=== PATIENT | female | born 1955 | race Caucasian/White ===

== ENCOUNTER 2018-04-29 12:42 | Inpatient (IN) | payer MEDICARE, OTHER ==
[~2018-04-29] VITALS: Ht 162.6 cm; Wt 67.7 kg
[2018-04-29] MEDS ORDERED: SODIUM CHLORIDE FLUSH 10ML SYR IVF ONE (13:30)
[2018-04-29 14:35] LABS: ALANINE AMINOTRANSFERASE 40 U/L (12-78); ALBUMIN 3.1 g/dL (3.4-5.0); ANION GAP 10 mmol/L (5-15); CALCIUM 9.5 mg/dL (8.5-10.1); CHLORIDE 101 mmol/L (98-107); CREATININE 0.83 mg/dL (0.55-1.02)
[2018-04-29 14:37] LABS: ALKALINE PHOSPHATASE 211 U/L (45-117); BILIRUBIN,TOTAL 0.6 mg/dL (0.2-1.0); TOTAL PROTEIN 8.4 g/dL (6.4-8.2)
--- NOTE | 2018-04-29 16:23 | NUR ---
TO ROOM AT THIS TIME
--- NOTE | 2018-04-29 16:23 | NUR ---
FROM LOBBY TO ROOM
[2018-04-29 16:54] LABS: MEAN CORPUSCULAR HEMOGLOBIN 37.8 pg (27.0-34.8); MEAN CORPUSCULAR HGB CONC 34.3 g/dL (32.4-35.8); MEAN CORPUSCULAR VOLUME 110.3 fL (80-100); PLATELET COUNT 482 x10^3/uL (130-400); RED BLOOD COUNT 4.06 x10^6/uL (3.82-5.3); RED CELL DISTRIBUTION WIDTH 13.9 % (9.6-15.2)
[2018-04-29 17:21] LABS: BASOPHILS # (AUTO) 0.14 x10^3/uL (0-0.1); BASOPHILS % (AUTO) 1 % (0-1); EOSINOPHILS # (AUTO) 0.38 x10^3/uL (0-0.4); EOSINOPHILS % (AUTO) 4 % (1-7); LYMPHOCYTES % (AUTO) 15 % (22-44); MD SCAN; MONOCYTES # (AUTO) 0.45 x10^3/uL (0.2-0.8); MONOCYTES % (AUTO) 4 % (2-9); NEUTROPHILS # (AUTO) 8.18 x10^3/uL (1.8-6.8); NEUTROPHILS % (AUTO) 76 % (42-75)
[2018-04-29] MEDS ORDERED: OXYcodone/APAP 5/325MG TABLET PO ONE (17:30)
--- NOTE | 2018-04-29 17:30 | NUR ---
ADDITIONAL ORDERS FOR LABS RECEIVED. PT REQUESTING SOMETHING FOR PAIN, NOTIFIED VERBAL ORDERS RECEIVED FOR PERC-5. PT TO BE MEDICATED
[2018-04-29] MEDS ORDERED: OXYcodone/APAP 5/325MG TABLET ONE (17:31)
[2018-04-29 17:36] LABS: HCT (SEDRATE) 44.7 % (34.6-47.8)
--- NOTE | 2018-04-29 17:58 | NUR ---
PT RESTING IN ROOM AT THIS TIME. VSS. MEDICATED FOR PAIN PER MAR. AWAITING LAB RESULTS AND RECHECK WITH DISPO AT THIS TIME
[2018-04-29] MEDS ORDERED: VANCOMYCIN PER PHARMACY MC PRN (18:00)
--- NOTE | 2018-04-29 18:03 | NUR ---
HOSPITALIST AT BEDSIDE FOR ADMIT
[2018-04-29] MEDS ORDERED: ENALAPRILAT 1.25 MG/ML, 2ML IVPush PRN (18:30)
[2018-04-29] MEDS ORDERED: ONDANSETRON 2MG/ML, 2ML IVPush PRN (18:30)
[2018-04-29] MEDS ORDERED: VANCOMYCIN 1,300 MG in SODIUM CHLORIDE 0.9% 250 ML IV ONE (18:30)
[2018-04-29] MEDS ORDERED: CEFTRIAXONE PMX 1GM/50ML 50 ML IV SCH (18:30)
[2018-04-29] MEDS ORDERED: hydrALAzine 20 MG/ML, 1ML IVPush PRN (18:30)
[2018-04-29] MEDS ORDERED: CEFTRIAXONE PMX 1GM/50ML 50 ML ONE (18:40)
--- NOTE | 2018-04-29 18:52 | NUR ---
[facility] STARTED BLOOD CULTURES X2 DRAWN PRIOR TO ADMIN.
--- NOTE | 2018-04-29 18:59 | NUR ---
REPORT GIVEN TO DOTTIE PASTRANA
[2018-04-29] MEDS ORDERED: HEPARIN 5,000 UNITS/ML, 1ML ONE (19:22)
[2018-04-29] MEDS: HEPARIN 5,000 UNITS/ML, 1ML SQ SCH (19:39)
--- NOTE | 2018-04-29 20:41 | NUR ---
PT GIVEN SANDWICH, FRUIT AND CHIPS PER REQUEST. ATE 50% OF MEAL.
[2018-04-29] MEDS: OXYcodone/APAP 5/325MG TABLET PO PRN (21:48)
[2018-04-29 23:06] VITALS: BP 150/93
[2018-04-30 01:33] VITALS: BP 133/75
[2018-04-30] MEDS: HEPARIN 5,000 UNITS/ML, 1ML SQ SCH ×3 (04:55→21:42)
[2018-04-30 06:46] VITALS: BP 125/72
[2018-04-30 07:01] LABS: MEAN CORPUSCULAR HEMOGLOBIN 37.6 pg (27.0-34.8); MEAN CORPUSCULAR VOLUME 110.6 fL (80-100); MEAN PLATELET VOLUME 7.8 fL (7.4-10.4); PLATELET COUNT 306 x10^3/uL (130-400); RED BLOOD COUNT 3.42 x10^6/uL (3.82-5.3); RED CELL DISTRIBUTION WIDTH 13.6 % (9.6-15.2)
[2018-04-30 07:07] LABS: ANION GAP 6 mmol/L (5-15); CALCIUM 8.3 mg/dL (8.5-10.1); CHLORIDE 105 mmol/L (98-107)
[2018-04-30 07:08] LABS: CREATININE 0.79 mg/dL (0.55-1.02)
[2018-04-30 07:26] LABS: BASOPHILS # (AUTO) 0.05 x10^3/uL (0-0.1); BASOPHILS % (AUTO) 1 % (0-1); EOSINOPHILS # (AUTO) 0.33 x10^3/uL (0-0.4); EOSINOPHILS % (AUTO) 3 % (1-7); LYMPHOCYTES # (AUTO) 0.73 x10^3/uL (1-3.4); LYMPHOCYTES % (AUTO) 7 % (22-44); MD SCAN; MONOCYTES # (AUTO) 0.52 x10^3/uL (0.2-0.8); MONOCYTES % (AUTO) 5 % (2-9); NEUTROPHILS # (AUTO) 8.68 x10^3/uL (1.8-6.8); NEUTROPHILS % (AUTO) 84 % (42-75)
[2018-04-30] MEDS ORDERED: GADOBUTROL 7.5 MMOL/7.5 ML PFS ONE (09:16)
[2018-04-30] MEDS: OXYcodone/APAP 5/325MG TABLET PO PRN ×2 (10:35→19:39)
[2018-04-30] MEDS ORDERED: PNEUMOC 13-VALENT VACC, 0.5 ML IM-VACC ONE (11:00)
[2018-04-30] MEDS: MEROPENEM 1 GM in SODIUM CHLORIDE 0.9% 100 ML IV SCH ×2 (11:28→19:39)
[2018-04-30 12:30] LABS: HEMOGLOBIN A1C 6.2 % (4.2-6.3)
[2018-04-30] MEDS: DAPTOMYCIN 260 MG in SODIUM CHLORIDE 0.9% 100 ML IV SCH (13:12)
[2018-04-30 13:37] VITALS: BP 114/72
[2018-04-30 19:28] VITALS: BP 148/83
[2018-05-01 02:30] VITALS: BP 150/80
[2018-05-01] MEDS: MEROPENEM 1 GM in SODIUM CHLORIDE 0.9% 100 ML IV SCH ×3 (03:40→19:47)
[2018-05-01] MEDS: OXYcodone/APAP 5/325MG TABLET PO PRN (05:04)
[2018-05-01] MEDS: HEPARIN 5,000 UNITS/ML, 1ML SQ SCH ×2 (05:04→17:06)
[2018-05-01 08:07] LABS: BASOPHILS # (AUTO) 0.03 x10^3/uL (0-0.1); BASOPHILS % (AUTO) 0 % (0-1); EOSINOPHILS # (AUTO) 0.35 x10^3/uL (0-0.4); EOSINOPHILS % (AUTO) 4 % (1-7); LYMPHOCYTES % (AUTO) 11 % (22-44); MD NO; MEAN CORPUSCULAR HEMOGLOBIN 36.8 pg (27.0-34.8); MEAN CORPUSCULAR HGB CONC 33.5 g/dL (32.4-35.8); MEAN PLATELET VOLUME 7.6 fL (7.4-10.4); MONOCYTES # (AUTO) 0.44 x10^3/uL (0.2-0.8); MONOCYTES % (AUTO) 5 % (2-9); NEUTROPHILS # (AUTO) 7.32 x10^3/uL (1.8-6.8); NEUTROPHILS % (AUTO) 80 % (42-75); PLATELET COUNT 292 x10^3/uL (130-400); RED BLOOD COUNT 3.15 x10^6/uL (3.82-5.3)
[2018-05-01 08:19] LABS: ANION GAP 5 mmol/L (5-15); CALCIUM 8.1 mg/dL (8.5-10.1); CHLORIDE 107 mmol/L (98-107); CREATININE 0.69 mg/dL (0.55-1.02)
[2018-05-01 08:24] VITALS: BP 146/82
[2018-05-01] MEDS: metFORMIN 500 MG TABLET PO SCH ×2 (08:29→17:00)
[2018-05-01] MEDS: DAPTOMYCIN 260 MG in SODIUM CHLORIDE 0.9% 100 ML IV SCH (12:29)
[2018-05-01 13:09] VITALS: BP 119/72
[2018-05-01] MEDS: NAPHAZOLINE/PHENIRAMINE OPHTH EACHEYE SCH ×2 (13:49→21:31)
[2018-05-01] MEDS ORDERED: DEXTROSE 50%, 50ML SYRINGE IVPush PRN (14:30)
[2018-05-01] MEDS ORDERED: DEXTROSE 4 GM TAB.CHEW PO PRN (14:30)
[2018-05-01] MEDS ORDERED: GLUCAGON 1 MG IM PRN (14:30)
[2018-05-01] MEDS: INSULIN LISPRO 100 UNITS/ML, PEN SQ-INSULIN SCH ×2 (16:00→19:52)
[2018-05-01 18:43] VITALS: BP 112/76
[2018-05-01] MEDS: SODIUM CHLORIDE FLUSH 10ML SYR IVF SCH (21:31)
[2018-05-02 00:50] VITALS: BP 122/79
[2018-05-02] MEDS: HEPARIN 5,000 UNITS/ML, 1ML SQ SCH ×3 (01:00→17:03)
[2018-05-02] MEDS: MEROPENEM 1 GM in SODIUM CHLORIDE 0.9% 100 ML IV SCH ×3 (03:33→19:47)
[2018-05-02] MEDS: NAPHAZOLINE/PHENIRAMINE OPHTH EACHEYE SCH ×4 (03:33→20:33)
[2018-05-02] MEDS: INSULIN LISPRO 100 UNITS/ML, PEN SQ-INSULIN SCH ×5 (07:00→19:47)
[2018-05-02 07:20] VITALS: BP 147/70
[2018-05-02] MEDS: SODIUM CHLORIDE FLUSH 10ML SYR IVF SCH ×2 (09:00→20:33)
[2018-05-02] MEDS: FLUCONAZOLE 200 MG TABLET PO SCH (09:17)
[2018-05-02] MEDS: metFORMIN 500 MG TABLET PO SCH ×2 (09:18→17:03)
[2018-05-02 14:14] VITALS: BP 152/81
[2018-05-02] MEDS: OXYcodone/APAP 5/325MG TABLET PO PRN (16:21)
[2018-05-02 18:44] VITALS: BP 135/69
[2018-05-03] MEDS: HEPARIN 5,000 UNITS/ML, 1ML SQ SCH ×3 (00:18→17:47)
[2018-05-03 01:10] VITALS: BP 142/73
[2018-05-03] MEDS: MEROPENEM 1 GM in SODIUM CHLORIDE 0.9% 100 ML IV SCH ×3 (03:09→19:47)
[2018-05-03] MEDS: NAPHAZOLINE/PHENIRAMINE OPHTH EACHEYE SCH ×4 (03:09→19:47)
[2018-05-03 05:07] LABS: MEAN CORPUSCULAR HEMOGLOBIN 36.9 pg (27.0-34.8); MEAN CORPUSCULAR HGB CONC 33.4 g/dL (32.4-35.8); MEAN CORPUSCULAR VOLUME 110.4 fL (80-100); MEAN PLATELET VOLUME 7.6 fL (7.4-10.4); PLATELET COUNT 296 x10^3/uL (130-400); RED CELL DISTRIBUTION WIDTH 13.5 % (9.6-15.2)
[2018-05-03 05:10] LABS: ALBUMIN 2.1 g/dL (3.4-5.0); ANION GAP 6 mmol/L (5-15); CALCIUM 8.4 mg/dL (8.5-10.1); CHLORIDE 107 mmol/L (98-107); CREATININE 0.64 mg/dL (0.55-1.02)
[2018-05-03 06:16] LABS: BASOPHILS # (AUTO) 0.05 x10^3/uL (0-0.1); BASOPHILS % (AUTO) 1 % (0-1); EOSINOPHILS % (AUTO) 6 % (1-7); LYMPHOCYTES # (AUTO) 1.24 x10^3/uL (1-3.4); LYMPHOCYTES % (AUTO) 19 % (22-44); MD NO; MONOCYTES # (AUTO) 0.42 x10^3/uL (0.2-0.8); MONOCYTES % (AUTO) 7 % (2-9); NEUTROPHILS # (AUTO) 4.28 x10^3/uL (1.8-6.8); NEUTROPHILS % (AUTO) 67 % (42-75)
[2018-05-03 07:10] VITALS: BP 118/72
[2018-05-03] MEDS: metFORMIN 500 MG TABLET PO SCH ×2 (08:18→17:47)
[2018-05-03] MEDS: INSULIN LISPRO 100 UNITS/ML, PEN SQ-INSULIN SCH ×4 (08:18→19:47)
[2018-05-03] MEDS: FLUCONAZOLE 200 MG TABLET PO SCH (08:19)
[2018-05-03] MEDS: SODIUM CHLORIDE FLUSH 10ML SYR IVF SCH ×2 (08:19→19:48)
[2018-05-03] MEDS: OXYcodone/APAP 5/325MG TABLET PO PRN ×2 (09:04→19:47)
[2018-05-03 17:46] VITALS: BP 138/83
[2018-05-03 18:50] VITALS: BP 138/78
[2018-05-04 00:09] VITALS: BP 120/73
[2018-05-04] MEDS: HEPARIN 5,000 UNITS/ML, 1ML SQ SCH ×3 (01:00→17:35)
[2018-05-04] MEDS: NAPHAZOLINE/PHENIRAMINE OPHTH EACHEYE SCH ×4 (04:07→21:12)
[2018-05-04] MEDS: MEROPENEM 1 GM in SODIUM CHLORIDE 0.9% 100 ML IV SCH ×3 (04:07→19:34)
[2018-05-04] MEDS ORDERED: CATHFLO-ALTEPLASE 2 MG/2 ML CATHFLUSH ONE (05:00)
[2018-05-04 06:52] LABS: BASOPHILS # (AUTO) 0.06 x10^3/uL (0-0.1); BASOPHILS % (AUTO) 1 % (0-1); EOSINOPHILS # (AUTO) 0.37 x10^3/uL (0-0.4); EOSINOPHILS % (AUTO) 6 % (1-7); LYMPHOCYTES # (AUTO) 1.14 x10^3/uL (1-3.4); LYMPHOCYTES % (AUTO) 19 % (22-44); MD NO; MEAN CORPUSCULAR HEMOGLOBIN 37.9 pg (27.0-34.8); MEAN CORPUSCULAR HGB CONC 34.4 g/dL (32.4-35.8); MEAN CORPUSCULAR VOLUME 109.9 fL (80-100); MEAN PLATELET VOLUME 7.6 fL (7.4-10.4); MONOCYTES # (AUTO) 0.35 x10^3/uL (0.2-0.8); MONOCYTES % (AUTO) 6 % (2-9); NEUTROPHILS % (AUTO) 69 % (42-75); PLATELET COUNT 305 x10^3/uL (130-400); RED CELL DISTRIBUTION WIDTH 13.3 % (9.6-15.2)
[2018-05-04] MEDS: INSULIN LISPRO 100 UNITS/ML, PEN SQ-INSULIN SCH ×4 (07:00→19:34)
[2018-05-04 07:03] LABS: ALBUMIN 2.2 g/dL (3.4-5.0); ANION GAP 7 mmol/L (5-15); CALCIUM 8.5 mg/dL (8.5-10.1); CHLORIDE 108 mmol/L (98-107); CREATININE 0.67 mg/dL (0.55-1.02)
[2018-05-04 07:30] VITALS: BP 124/68
[2018-05-04] MEDS: FLUCONAZOLE 200 MG TABLET PO SCH (09:26)
[2018-05-04] MEDS: SODIUM CHLORIDE FLUSH 10ML SYR IVF SCH ×2 (09:27→21:00)
[2018-05-04] MEDS: metFORMIN 500 MG TABLET PO SCH ×2 (09:27→17:35)
[2018-05-04] MEDS: OXYcodone/APAP 5/325MG TABLET PO PRN ×2 (12:40→21:12)
[2018-05-04 14:00] VITALS: BP 129/78
[2018-05-04 18:35] VITALS: BP 157/84
[2018-05-04] MEDS: ACETAMINOPHEN 325 MG TABLET PO PRN (23:55)
[2018-05-05 00:20] VITALS: BP 156/83
[2018-05-05] MEDS: NAPHAZOLINE/PHENIRAMINE OPHTH EACHEYE SCH ×4 (03:31→20:44)
[2018-05-05] MEDS: MEROPENEM 1 GM in SODIUM CHLORIDE 0.9% 100 ML IV SCH ×3 (03:31→20:44)
[2018-05-05 04:20] LABS: BASOPHILS # (AUTO) 0.07 x10^3/uL (0-0.1); BASOPHILS % (AUTO) 1 % (0-1); EOSINOPHILS # (AUTO) 0.44 x10^3/uL (0-0.4); EOSINOPHILS % (AUTO) 6 % (1-7); LYMPHOCYTES # (AUTO) 1.49 x10^3/uL (1-3.4); LYMPHOCYTES % (AUTO) 20 % (22-44); MD NO; MEAN CORPUSCULAR HEMOGLOBIN 36.5 pg (27.0-34.8); MEAN CORPUSCULAR HGB CONC 33.2 g/dL (32.4-35.8); MEAN PLATELET VOLUME 8.2 fL (7.4-10.4); MONOCYTES # (AUTO) 0.33 x10^3/uL (0.2-0.8); MONOCYTES % (AUTO) 5 % (2-9); NEUTROPHILS # (AUTO) 5.01 x10^3/uL (1.8-6.8); NEUTROPHILS % (AUTO) 68 % (42-75); PLATELET COUNT 312 x10^3/uL (130-400); RED BLOOD COUNT 3.38 x10^6/uL (3.82-5.3); RED CELL DISTRIBUTION WIDTH 13.9 % (9.6-15.2)
[2018-05-05 04:21] LABS: HCT (SEDRATE) 37.2 % (34.6-47.8)
[2018-05-05 04:31] LABS: ALANINE AMINOTRANSFERASE 17 U/L (12-78); ALBUMIN 2.1 g/dL (3.4-5.0); ANION GAP 4 mmol/L (5-15); CALCIUM 8.5 mg/dL (8.5-10.1); CHLORIDE 107 mmol/L (98-107); CREATININE 0.56 mg/dL (0.55-1.02)
[2018-05-05 04:34] LABS: ALKALINE PHOSPHATASE 115 U/L (45-117); BILIRUBIN,TOTAL 0.3 mg/dL (0.2-1.0); C-REACTIVE PROTEIN, QUANT 0.81 mg/dL (0.02-0.49); TOTAL PROTEIN 6.1 g/dL (6.4-8.2)
[2018-05-05] MEDS: INSULIN LISPRO 100 UNITS/ML, PEN SQ-INSULIN SCH ×4 (07:00→20:44)
[2018-05-05 07:05] VITALS: BP 113/69
[2018-05-05] MEDS: SODIUM CHLORIDE FLUSH 10ML SYR IVF SCH ×2 (07:47→20:44)
[2018-05-05] MEDS: metFORMIN 500 MG TABLET PO SCH ×2 (07:53→16:28)
[2018-05-05] MEDS: HEPARIN 5,000 UNITS/ML, 1ML SQ SCH ×3 (07:53→16:28)
[2018-05-05] MEDS: FLUCONAZOLE 200 MG TABLET PO SCH (07:53)
[2018-05-05] MEDS: OXYcodone/APAP 5/325MG TABLET PO PRN ×2 (11:57→20:49)
[2018-05-05 12:56] VITALS: BP 131/47
[2018-05-05] MEDS: DAPTOMYCIN 450 MG in SODIUM CHLORIDE 0.9% 100 ML IVPB SCH (12:59)
[2018-05-05 20:51] VITALS: BP 133/78
[2018-05-06] MEDS: HEPARIN 5,000 UNITS/ML, 1ML SQ SCH ×3 (01:00→17:23)
[2018-05-06 02:02] VITALS: BP 128/77
[2018-05-06] MEDS: NAPHAZOLINE/PHENIRAMINE OPHTH EACHEYE SCH ×4 (03:00→19:30)
[2018-05-06] MEDS: MEROPENEM 1 GM in SODIUM CHLORIDE 0.9% 100 ML IV SCH ×3 (04:28→19:30)
[2018-05-06] MEDS: OXYcodone/APAP 5/325MG TABLET PO PRN ×3 (04:37→19:30)
[2018-05-06] MEDS: INSULIN LISPRO 100 UNITS/ML, PEN SQ-INSULIN SCH ×4 (07:00→21:00)
[2018-05-06 07:28] VITALS: BP 109/66
[2018-05-06] MEDS: metFORMIN 500 MG TABLET PO SCH ×2 (07:39→17:22)
[2018-05-06] MEDS: FLUCONAZOLE 200 MG TABLET PO SCH (07:40)
[2018-05-06] MEDS: SODIUM CHLORIDE FLUSH 10ML SYR IVF SCH ×2 (07:40→21:00)
[2018-05-06] MEDS: DAPTOMYCIN 450 MG in SODIUM CHLORIDE 0.9% 100 ML IVPB SCH (12:45)
[2018-05-06 14:23] VITALS: BP 102/67
[2018-05-06 21:08] VITALS: BP 132/85
[2018-05-07] MEDS: HEPARIN 5,000 UNITS/ML, 1ML SQ SCH ×3 (01:00→17:18)
[2018-05-07 02:33] VITALS: BP 117/76
[2018-05-07] MEDS: NAPHAZOLINE/PHENIRAMINE OPHTH EACHEYE SCH ×4 (03:51→19:36)
[2018-05-07] MEDS: MEROPENEM 1 GM in SODIUM CHLORIDE 0.9% 100 ML IV SCH ×3 (03:51→20:06)
[2018-05-07] MEDS: INSULIN LISPRO 100 UNITS/ML, PEN SQ-INSULIN SCH ×4 (07:00→19:39)
[2018-05-07 07:42] VITALS: BP 117/73
[2018-05-07] MEDS: metFORMIN 500 MG TABLET PO SCH ×2 (08:17→17:18)
[2018-05-07] MEDS: FLUCONAZOLE 200 MG TABLET PO SCH (08:17)
[2018-05-07] MEDS: SODIUM CHLORIDE FLUSH 10ML SYR IVF SCH ×2 (09:00→19:36)
[2018-05-07] MEDS: OXYcodone/APAP 5/325MG TABLET PO PRN ×2 (11:46→21:15)
[2018-05-07] MEDS: DAPTOMYCIN 450 MG in SODIUM CHLORIDE 0.9% 100 ML IVPB SCH (12:49)
[2018-05-07 15:42] VITALS: BP 118/76
[2018-05-07 20:38] VITALS: BP 138/80
[2018-05-08] MEDS: HEPARIN 5,000 UNITS/ML, 1ML SQ SCH ×3 (00:31→17:15)
[2018-05-08 01:16] VITALS: BP 130/79
[2018-05-08] MEDS: NAPHAZOLINE/PHENIRAMINE OPHTH EACHEYE SCH ×4 (02:36→19:39)
[2018-05-08] MEDS: MEROPENEM 1 GM in SODIUM CHLORIDE 0.9% 100 ML IV SCH ×3 (03:42→19:39)
[2018-05-08] MEDS: INSULIN LISPRO 100 UNITS/ML, PEN SQ-INSULIN SCH (07:00)
[2018-05-08] MEDS: SODIUM CHLORIDE FLUSH 10ML SYR IVF SCH ×2 (07:39→19:40)
[2018-05-08] MEDS: metFORMIN 500 MG TABLET PO SCH ×2 (07:39→17:14)
[2018-05-08] MEDS: FLUCONAZOLE 200 MG TABLET PO SCH (07:39)
[2018-05-08 07:41] VITALS: BP 119/77
[2018-05-08] MEDS: OXYcodone/APAP 5/325MG TABLET PO PRN ×2 (11:19→21:18)
[2018-05-08 12:50] VITALS: BP 132/84
[2018-05-08] MEDS: DAPTOMYCIN 450 MG in SODIUM CHLORIDE 0.9% 100 ML IVPB SCH (13:22)
[2018-05-08 19:37] VITALS: BP 146/90
[2018-05-08] MEDS: DIPHENHYDRAMINE 25 MG CAPSULE PO PRN (22:23)
[2018-05-09] MEDS: HEPARIN 5,000 UNITS/ML, 1ML SQ SCH ×3 (00:15→16:19)
[2018-05-09 01:00] VITALS: BP 131/83
[2018-05-09] MEDS: NAPHAZOLINE/PHENIRAMINE OPHTH EACHEYE SCH ×4 (03:00→19:46)
[2018-05-09] MEDS: MEROPENEM 1 GM in SODIUM CHLORIDE 0.9% 100 ML IV SCH ×3 (04:14→19:46)
[2018-05-09 07:43] VITALS: BP 134/86
[2018-05-09] MEDS: SODIUM CHLORIDE FLUSH 10ML SYR IVF SCH ×2 (08:46→19:47)
[2018-05-09] MEDS: FLUCONAZOLE 200 MG TABLET PO SCH (08:56)
[2018-05-09] MEDS: metFORMIN 500 MG TABLET PO SCH ×2 (08:56→16:19)
[2018-05-09] MEDS: DIPHENHYDRAMINE 25 MG CAPSULE PO PRN ×2 (09:54→21:37)
[2018-05-09] MEDS: OXYcodone/APAP 5/325MG TABLET PO PRN ×2 (10:55→21:37)
[2018-05-09] MEDS: ACETAMINOPHEN 325 MG TABLET PO PRN (12:00)
[2018-05-09 14:00] VITALS: BP 118/78
[2018-05-09] MEDS: DAPTOMYCIN 450 MG in SODIUM CHLORIDE 0.9% 100 ML IVPB SCH (14:15)
[2018-05-09 19:26] VITALS: BP 121/76
[2018-05-10] MEDS: HEPARIN 5,000 UNITS/ML, 1ML SQ SCH ×3 (00:54→17:28)
[2018-05-10 01:38] VITALS: BP 113/76
[2018-05-10] MEDS: NAPHAZOLINE/PHENIRAMINE OPHTH EACHEYE SCH ×4 (04:00→19:46)
[2018-05-10] MEDS: MEROPENEM 1 GM in SODIUM CHLORIDE 0.9% 100 ML IV SCH ×3 (04:00→19:45)
[2018-05-10] MEDS: SODIUM CHLORIDE FLUSH 10ML SYR IVF SCH ×2 (07:18→19:46)
[2018-05-10 07:44] VITALS: BP 125/80
[2018-05-10] MEDS: metFORMIN 500 MG TABLET PO SCH ×2 (08:56→17:29)
[2018-05-10] MEDS: FLUCONAZOLE 200 MG TABLET PO SCH (08:56)
[2018-05-10] MEDS: OXYcodone/APAP 5/325MG TABLET PO PRN ×2 (13:04→19:44)
[2018-05-10 13:53] VITALS: BP 115/79
[2018-05-10] MEDS: DAPTOMYCIN 450 MG in SODIUM CHLORIDE 0.9% 100 ML IVPB SCH (13:57)
[2018-05-10 19:55] VITALS: BP 136/84
[2018-05-10] MEDS: DIPHENHYDRAMINE 25 MG CAPSULE PO PRN (20:26)
[2018-05-11] MEDS: HEPARIN 5,000 UNITS/ML, 1ML SQ SCH ×3 (03:36→17:46)
[2018-05-11] MEDS: MEROPENEM 1 GM in SODIUM CHLORIDE 0.9% 100 ML IV SCH ×3 (03:36→20:14)
[2018-05-11] MEDS: NAPHAZOLINE/PHENIRAMINE OPHTH EACHEYE SCH ×4 (03:36→20:14)
[2018-05-11 03:42] VITALS: BP 131/83
[2018-05-11 08:09] VITALS: BP 130/77
[2018-05-11] MEDS: FLUCONAZOLE 200 MG TABLET PO SCH (08:11)
[2018-05-11] MEDS: metFORMIN 500 MG TABLET PO SCH ×2 (08:11→17:46)
[2018-05-11] MEDS: SODIUM CHLORIDE FLUSH 10ML SYR IVF SCH ×2 (08:13→20:14)
[2018-05-11] MEDS: OXYcodone/APAP 5/325MG TABLET PO PRN ×3 (10:27→20:14)
[2018-05-11 12:33] VITALS: BP 138/86
[2018-05-11] MEDS: DAPTOMYCIN 450 MG in SODIUM CHLORIDE 0.9% 100 ML IVPB SCH (13:22)
[2018-05-11 19:34] VITALS: BP 150/87
[2018-05-11] MEDS: DIPHENHYDRAMINE 25 MG CAPSULE PO PRN (20:14)
[2018-05-12] MEDS: HEPARIN 5,000 UNITS/ML, 1ML SQ SCH ×3 (04:05→20:23)
[2018-05-12] MEDS: NAPHAZOLINE/PHENIRAMINE OPHTH EACHEYE SCH ×4 (04:05→20:24)
[2018-05-12] MEDS: MEROPENEM 1 GM in SODIUM CHLORIDE 0.9% 100 ML IV SCH ×3 (04:10→20:24)
[2018-05-12] MEDS ORDERED: CATHFLO-ALTEPLASE 2 MG/2 ML CATHFLUSH ONE (04:30)
[2018-05-12 04:51] VITALS: BP 119/73
[2018-05-12 06:07] LABS: BASOPHILS # (AUTO) 0.01 x10^3/uL (0-0.1); BASOPHILS % (AUTO) 0 % (0-1); EOSINOPHILS # (AUTO) 0.58 x10^3/uL (0-0.4); EOSINOPHILS % (AUTO) 9 % (1-7); HCT (SEDRATE) 36.9 % (34.6-47.8); LYMPHOCYTES # (AUTO) 0.97 x10^3/uL (1-3.4); LYMPHOCYTES % (AUTO) 15 % (22-44); MD NO; MEAN CORPUSCULAR HGB CONC 34.3 g/dL (32.4-35.8); MEAN CORPUSCULAR VOLUME 107.8 fL (80-100); MEAN PLATELET VOLUME 8.8 fL (7.4-10.4); MONOCYTES # (AUTO) 0.26 x10^3/uL (0.2-0.8); MONOCYTES % (AUTO) 4 % (2-9); NEUTROPHILS # (AUTO) 4.52 x10^3/uL (1.8-6.8); NEUTROPHILS % (AUTO) 71 % (42-75); PLATELET COUNT 312 x10^3/uL (130-400); RED BLOOD COUNT 3.41 x10^6/uL (3.82-5.3)
[2018-05-12 06:15] LABS: ALBUMIN 2.3 g/dL (3.4-5.0); ANION GAP 3 mmol/L (5-15); CALCIUM 8.7 mg/dL (8.5-10.1); CHLORIDE 109 mmol/L (98-107)
[2018-05-12 06:34] LABS: ALANINE AMINOTRANSFERASE 33 U/L (12-78); ALKALINE PHOSPHATASE 110 U/L (45-117); BILIRUBIN,TOTAL 0.3 mg/dL (0.2-1.0); C-REACTIVE PROTEIN, QUANT 0.28 mg/dL (0.02-0.49); CREATINE KINASE, TOTAL 1404 U/L (26-192); CREATININE 0.58 mg/dL (0.55-1.02); TOTAL PROTEIN 6.4 g/dL (6.4-8.2)
[2018-05-12 07:30] VITALS: BP 135/80
[2018-05-12] MEDS: metFORMIN 500 MG TABLET PO SCH ×2 (07:58→17:36)
[2018-05-12] MEDS: FLUCONAZOLE 200 MG TABLET PO SCH (07:58)
[2018-05-12] MEDS: SODIUM CHLORIDE FLUSH 10ML SYR IVF SCH ×2 (08:01→20:24)
[2018-05-12] MEDS: OXYcodone/APAP 5/325MG TABLET PO PRN ×2 (11:27→20:24)
[2018-05-12] MEDS: DIPHENHYDRAMINE 25 MG CAPSULE PO PRN ×2 (11:32→20:24)
[2018-05-12] MEDS: DAPTOMYCIN 450 MG in SODIUM CHLORIDE 0.9% 100 ML IVPB SCH (13:09)
[2018-05-12 13:12] VITALS: BP 130/81
[2018-05-12 19:54] VITALS: BP 161/90
[2018-05-13 03:55] VITALS: BP 153/78
[2018-05-13] MEDS: MEROPENEM 1 GM in SODIUM CHLORIDE 0.9% 100 ML IV SCH ×3 (04:05→20:33)
[2018-05-13] MEDS: NAPHAZOLINE/PHENIRAMINE OPHTH EACHEYE SCH ×4 (04:06→20:47)
[2018-05-13] MEDS: HEPARIN 5,000 UNITS/ML, 1ML SQ SCH ×3 (04:06→20:46)
[2018-05-13] MEDS: DIPHENHYDRAMINE 25 MG CAPSULE PO PRN ×2 (04:20→20:47)
[2018-05-13] MEDS: OXYcodone/APAP 5/325MG TABLET PO PRN ×2 (04:20→20:47)
[2018-05-13 07:55] VITALS: BP 130/79
[2018-05-13] MEDS: FLUCONAZOLE 200 MG TABLET PO SCH (07:56)
[2018-05-13] MEDS: SODIUM CHLORIDE FLUSH 10ML SYR IVF SCH ×2 (07:57→20:47)
[2018-05-13] MEDS: metFORMIN 500 MG TABLET PO SCH ×2 (07:57→17:34)
[2018-05-13] MEDS: DAPTOMYCIN 450 MG in SODIUM CHLORIDE 0.9% 100 ML IVPB SCH (13:08)
[2018-05-13 15:10] VITALS: BP 127/83
[2018-05-13 19:43] VITALS: BP 147/87
[2018-05-13] MEDS: ACETAMINOPHEN 325 MG TABLET PO PRN (23:52)
[2018-05-14 02:24] VITALS: BP 152/85
[2018-05-14] MEDS: HEPARIN 5,000 UNITS/ML, 1ML SQ SCH (03:56)
[2018-05-14] MEDS: NAPHAZOLINE/PHENIRAMINE OPHTH EACHEYE SCH ×4 (03:56→21:55)
[2018-05-14] MEDS: MEROPENEM 1 GM in SODIUM CHLORIDE 0.9% 100 ML IV SCH ×3 (03:56→17:40)
[2018-05-14 07:59] VITALS: BP 128/82
[2018-05-14] MEDS: metFORMIN 500 MG TABLET PO SCH ×2 (08:21→17:00)
[2018-05-14] MEDS: FLUCONAZOLE 200 MG TABLET PO SCH (08:21)
[2018-05-14] MEDS: SODIUM CHLORIDE FLUSH 10ML SYR IVF SCH ×2 (08:22→21:55)
[2018-05-14 12:35] VITALS: BP 123/78
[2018-05-14] MEDS: DAPTOMYCIN 450 MG in SODIUM CHLORIDE 0.9% 100 ML IVPB SCH (15:19)
[2018-05-14] MEDS ORDERED: SODIUM CHLORIDE 0.9% 1,000 ML IV SCH (17:00)
[2018-05-14] MEDS ORDERED: MIDAZOLAM 1 MG/ML, 2ML ONE (19:03)
[2018-05-14] MEDS ORDERED: FENTANYL PF 250 MCG/5ML ONE (19:04)
[2018-05-14] MEDS ORDERED: PROPOFOL 10 MG/ML, 50ML ONE (19:12)
[2018-05-14] MEDS ORDERED: FENTANYL PF 100 MCG/2ML IV PRN (19:30)
[2018-05-14] MEDS ORDERED: ONDANSETRON ODT 8 MG PO PRN (19:30)
[2018-05-14] MEDS ORDERED: MORPHINE SULFATE 4 MG/ML, 1ML IVPush PRN (19:30)
[2018-05-14] MEDS ORDERED: EPHEDRINE 50 MG/ML, 1ML IVPush PRN (19:30)
[2018-05-14] MEDS ORDERED: OXYcodone 5 MG/5 ML ORAL.SOL UDC PO PRN (19:30)
[2018-05-14] MEDS ORDERED: DIAZEPAM 5 MG/ML, 2ML IVPush PRN (19:30)
[2018-05-14] MEDS ORDERED: LABETALOL 5 MG/ML SYRINGE IV PRN (19:30)
[2018-05-14] MEDS ORDERED: EPHEDRINE 50 MG/ML, 1ML IM PRN (19:30)
[2018-05-14] MEDS ORDERED: ACETAMINOPHEN 325 MG TABLET PO PRN (19:30)
[2018-05-14] MEDS ORDERED: ONDANSETRON 2MG/ML, 2ML IV PRN (19:30)
[2018-05-14] MEDS ORDERED: MEPERIDINE/PF 25MG/0.5ML IVPush PRN (19:30)
[2018-05-14] MEDS ORDERED: DIPHENHYDRAMINE 50 MG/ML, 1ML IVPush PRN (19:30)
[2018-05-14] MEDS ORDERED: OXYcodone 5 MG/5 ML ORAL.SOL UDC ONE (20:08)
[2018-05-14] MEDS ORDERED: ROCURONIUM 10 MG/ML,10ML ONE (20:25)
[2018-05-14] MEDS ORDERED: PROPOFOL 10 MG/ML, 20ML ONE (20:25)
[2018-05-14] MEDS ORDERED: SUCCINYLCHOLINE 20 MG/ML, 10ML ONE (20:25)
[2018-05-14 20:46] VITALS: BP 133/90
[2018-05-14] MEDS: LINEZOLID PMX 600MG/300ML 300 ML IV SCH (21:55)
[2018-05-15] MEDS: MEROPENEM 1 GM in SODIUM CHLORIDE 0.9% 100 ML IV SCH ×3 (00:16→16:30)
[2018-05-15 02:27] VITALS: BP 147/87
[2018-05-15] MEDS: NAPHAZOLINE/PHENIRAMINE OPHTH EACHEYE SCH ×4 (03:00→20:31)
[2018-05-15 06:11] LABS: BASOPHILS # (AUTO) 0.03 x10^3/uL (0-0.1); BASOPHILS % (AUTO) 1 % (0-1); EOSINOPHILS # (AUTO) 0.61 x10^3/uL (0-0.4); EOSINOPHILS % (AUTO) 12 % (1-7); LYMPHOCYTES # (AUTO) 0.86 x10^3/uL (1-3.4); LYMPHOCYTES % (AUTO) 16 % (22-44); MD NO; MEAN CORPUSCULAR HEMOGLOBIN 36.8 pg (27.0-34.8); MEAN CORPUSCULAR HGB CONC 34.3 g/dL (32.4-35.8); MEAN CORPUSCULAR VOLUME 107.3 fL (80-100); MEAN PLATELET VOLUME 8.3 fL (7.4-10.4); MONOCYTES # (AUTO) 0.34 x10^3/uL (0.2-0.8); MONOCYTES % (AUTO) 6 % (2-9); NEUTROPHILS # (AUTO) 3.48 x10^3/uL (1.8-6.8); NEUTROPHILS % (AUTO) 65 % (42-75); PLATELET COUNT 305 x10^3/uL (130-400); RED BLOOD COUNT 3.38 x10^6/uL (3.82-5.3); RED CELL DISTRIBUTION WIDTH 13.2 % (9.6-15.2)
[2018-05-15 06:29] LABS: ALANINE AMINOTRANSFERASE 45 U/L (12-78); ALBUMIN 2.4 g/dL (3.4-5.0); ANION GAP 4 mmol/L (5-15); CALCIUM 8.8 mg/dL (8.5-10.1); CHLORIDE 110 mmol/L (98-107); CREATININE 0.62 mg/dL (0.55-1.02)
[2018-05-15 06:32] LABS: ALKALINE PHOSPHATASE 118 U/L (45-117); BILIRUBIN,TOTAL 0.4 mg/dL (0.2-1.0); TOTAL PROTEIN 6.2 g/dL (6.4-8.2)
[2018-05-15 08:23] VITALS: BP 137/82
[2018-05-15] MEDS: FLUCONAZOLE 200 MG TABLET PO SCH (08:37)
[2018-05-15] MEDS: OXYcodone/APAP 5/325MG TABLET PO PRN ×3 (08:37→20:31)
[2018-05-15] MEDS: DIPHENHYDRAMINE 25 MG CAPSULE PO PRN ×2 (08:37→20:31)
[2018-05-15] MEDS: metFORMIN 500 MG TABLET PO SCH ×2 (08:37→16:32)
[2018-05-15] MEDS: SODIUM CHLORIDE FLUSH 10ML SYR IVF SCH ×2 (08:38→20:42)
[2018-05-15] MEDS: LINEZOLID PMX 600MG/300ML 300 ML IV SCH ×2 (10:41→22:18)
[2018-05-15] MEDS: HEPARIN 5,000 UNITS/ML, 1ML SQ SCH ×2 (13:01→20:31)
[2018-05-15 13:07] VITALS: BP 135/84
[2018-05-15 19:47] VITALS: BP 131/77
[2018-05-16] MEDS: MEROPENEM 1 GM in SODIUM CHLORIDE 0.9% 100 ML IV SCH ×3 (00:40→15:50)
[2018-05-16 00:42] VITALS: BP 129/81
[2018-05-16] MEDS: HEPARIN 5,000 UNITS/ML, 1ML SQ SCH ×3 (04:25→21:54)
[2018-05-16] MEDS: DIPHENHYDRAMINE 25 MG CAPSULE PO PRN ×2 (04:25→21:54)
[2018-05-16] MEDS: OXYcodone/APAP 5/325MG TABLET PO PRN ×3 (04:25→21:54)
[2018-05-16] MEDS: NAPHAZOLINE/PHENIRAMINE OPHTH EACHEYE SCH ×4 (04:26→21:55)
[2018-05-16 07:03] VITALS: BP 123/75
[2018-05-16 07:04] LABS: CALCIUM 8.8 mg/dL (8.5-10.1); CHLORIDE 111 mmol/L (98-107)
[2018-05-16 07:11] LABS: ANION GAP 5 mmol/L (5-15); CREATINE KINASE, TOTAL 661 U/L (26-192); CREATININE 0.61 mg/dL (0.55-1.02)
[2018-05-16] MEDS: FLUCONAZOLE 200 MG TABLET PO SCH (08:33)
[2018-05-16] MEDS: metFORMIN 500 MG TABLET PO SCH ×2 (08:33→15:49)
[2018-05-16] MEDS: SODIUM CHLORIDE FLUSH 10ML SYR IVF SCH ×2 (08:34→21:55)
[2018-05-16] MEDS: LINEZOLID PMX 600MG/300ML 300 ML IV SCH ×2 (11:02→21:55)
[2018-05-16 13:12] VITALS: BP 147/86
[2018-05-16 18:39] VITALS: BP 141/68
[2018-05-16] MEDS: ONDANSETRON 4 MG TABLET PO PRN (22:39)
[2018-05-17] MEDS: MEROPENEM 1 GM in SODIUM CHLORIDE 0.9% 100 ML IV SCH ×3 (00:14→17:12)
[2018-05-17 00:59] VITALS: BP 128/86
[2018-05-17] MEDS: NAPHAZOLINE/PHENIRAMINE OPHTH EACHEYE SCH ×4 (04:31→22:06)
[2018-05-17] MEDS: OXYcodone/APAP 5/325MG TABLET PO PRN ×2 (04:31→20:21)
[2018-05-17] MEDS: HEPARIN 5,000 UNITS/ML, 1ML SQ SCH ×2 (04:31→17:12)
[2018-05-17 07:58] VITALS: BP 105/67
[2018-05-17] MEDS: SODIUM CHLORIDE FLUSH 10ML SYR IVF SCH ×2 (09:00→22:06)
[2018-05-17] MEDS: FLUCONAZOLE 200 MG TABLET PO SCH (10:04)
[2018-05-17] MEDS: metFORMIN 500 MG TABLET PO SCH ×2 (10:04→17:11)
[2018-05-17] MEDS: LINEZOLID PMX 600MG/300ML 300 ML IV SCH ×2 (11:23→22:07)
[2018-05-17 13:46] VITALS: BP 150/86
[2018-05-17 21:05] VITALS: BP 159/88
[2018-05-17] MEDS: DIPHENHYDRAMINE 25 MG CAPSULE PO PRN (22:07)
[2018-05-18] MEDS: HEPARIN 5,000 UNITS/ML, 1ML SQ SCH ×2 (00:57→09:34)
[2018-05-18] MEDS: MEROPENEM 1 GM in SODIUM CHLORIDE 0.9% 100 ML IV SCH ×3 (00:57→18:26)
[2018-05-18] MEDS: NAPHAZOLINE/PHENIRAMINE OPHTH EACHEYE SCH ×4 (03:00→21:13)
[2018-05-18 03:22] VITALS: BP 128/84
[2018-05-18 07:43] VITALS: BP 118/75
[2018-05-18] MEDS: SODIUM CHLORIDE FLUSH 10ML SYR IVF SCH ×2 (09:00→21:13)
[2018-05-18] MEDS: FLUCONAZOLE 200 MG TABLET PO SCH (09:34)
[2018-05-18] MEDS: metFORMIN 500 MG TABLET PO SCH ×2 (09:34→18:26)
[2018-05-18] MEDS: LINEZOLID PMX 600MG/300ML 300 ML IV SCH ×2 (10:33→22:11)
[2018-05-18 12:29] VITALS: BP 140/86
[2018-05-18] MEDS: ENOXAPARIN 40 MG/0.4 ML SQ SCH (18:26)
[2018-05-18 20:37] VITALS: BP 149/90
[2018-05-18] MEDS: OXYcodone/APAP 5/325MG TABLET PO PRN (21:13)
[2018-05-18] MEDS: DIPHENHYDRAMINE 25 MG CAPSULE PO PRN (21:14)
[2018-05-19] MEDS: MEROPENEM 1 GM in SODIUM CHLORIDE 0.9% 100 ML IV SCH ×3 (00:44→16:45)
[2018-05-19 00:48] VITALS: BP 132/80
[2018-05-19] MEDS: NAPHAZOLINE/PHENIRAMINE OPHTH EACHEYE SCH ×4 (02:43→20:38)
[2018-05-19 06:08] LABS: MEAN CORPUSCULAR HEMOGLOBIN 36.3 pg (27.0-34.8); MEAN CORPUSCULAR HGB CONC 34.2 g/dL (32.4-35.8); MEAN CORPUSCULAR VOLUME 106.1 fL (80-100); MEAN PLATELET VOLUME 8.8 fL (7.4-10.4); PLATELET COUNT 328 x10^3/uL (130-400); RED BLOOD COUNT 3.45 x10^6/uL (3.82-5.3)
[2018-05-19 06:13] LABS: CHLORIDE 108 mmol/L (98-107)
[2018-05-19 06:21] LABS: ALANINE AMINOTRANSFERASE 38 U/L (12-78); ALBUMIN 2.5 g/dL (3.4-5.0); ALKALINE PHOSPHATASE 126 U/L (45-117); ANION GAP 7 mmol/L (5-15); BILIRUBIN,TOTAL 0.5 mg/dL (0.2-1.0); C-REACTIVE PROTEIN, QUANT 0.17 mg/dL (0.02-0.49); CALCIUM 8.7 mg/dL (8.5-10.1); CREATINE KINASE, TOTAL 127 U/L (26-192); CREATININE 0.65 mg/dL (0.55-1.02); HCT (SEDRATE) 36.5 % (34.6-47.8); TOTAL PROTEIN 6.3 g/dL (6.4-8.2)
[2018-05-19 07:04] LABS: BASOPHILS # (AUTO) 0.06 x10^3/uL (0-0.1); BASOPHILS % (AUTO) 2 % (0-1); EOSINOPHILS # (AUTO) 0.58 x10^3/uL (0-0.4); EOSINOPHILS % (AUTO) 14 % (1-7); LYMPHOCYTES % (AUTO) 25 % (22-44); MD SCAN; MONOCYTES # (AUTO) 0.25 x10^3/uL (0.2-0.8); MONOCYTES % (AUTO) 6 % (2-9); NEUTROPHILS # (AUTO) 2.21 x10^3/uL (1.8-6.8); NEUTROPHILS % (AUTO) 54 % (42-75)
[2018-05-19 08:13] VITALS: BP 116/76
[2018-05-19] MEDS: LINEZOLID PMX 600MG/300ML 300 ML IV SCH ×2 (09:48→21:46)
[2018-05-19] MEDS: FLUCONAZOLE 200 MG TABLET PO SCH (09:48)
[2018-05-19] MEDS: metFORMIN 500 MG TABLET PO SCH ×2 (09:48→16:45)
[2018-05-19] MEDS: SODIUM CHLORIDE FLUSH 10ML SYR IVF SCH ×2 (09:49→20:31)
[2018-05-19 13:59] VITALS: BP 121/81
[2018-05-19] MEDS: ENOXAPARIN 40 MG/0.4 ML SQ SCH (15:56)
[2018-05-19 19:14] VITALS: BP 147/87
[2018-05-19] MEDS: DIPHENHYDRAMINE 25 MG CAPSULE PO PRN (20:37)
[2018-05-19] MEDS: OXYcodone/APAP 5/325MG TABLET PO PRN (20:37)
[2018-05-19] MEDS: ONDANSETRON 4 MG TABLET PO PRN (21:46)
[2018-05-20 00:25] VITALS: BP 131/80
[2018-05-20] MEDS: MEROPENEM 1 GM in SODIUM CHLORIDE 0.9% 100 ML IV SCH ×3 (01:22→17:05)
[2018-05-20] MEDS: NAPHAZOLINE/PHENIRAMINE OPHTH EACHEYE SCH ×5 (03:00→23:38)
[2018-05-20 08:05] VITALS: BP 117/78
[2018-05-20] MEDS: SODIUM CHLORIDE FLUSH 10ML SYR IVF SCH ×2 (08:36→20:15)
[2018-05-20] MEDS: FLUCONAZOLE 200 MG TABLET PO SCH (08:36)
[2018-05-20] MEDS: metFORMIN 500 MG TABLET PO SCH ×2 (08:36→17:04)
[2018-05-20] MEDS: LINEZOLID PMX 600MG/300ML 300 ML IV SCH ×2 (11:38→23:34)
[2018-05-20 14:56] VITALS: BP 126/78
[2018-05-20] MEDS: ENOXAPARIN 40 MG/0.4 ML SQ SCH (17:04)
[2018-05-20] MEDS: ONDANSETRON 4 MG TABLET PO PRN (20:13)
[2018-05-20 20:23] VITALS: BP 158/92
[2018-05-20] MEDS: OXYcodone/APAP 5/325MG TABLET PO PRN (21:24)
[2018-05-20] MEDS: DIPHENHYDRAMINE 25 MG CAPSULE PO PRN (23:34)
[2018-05-21] MEDS: MEROPENEM 1 GM in SODIUM CHLORIDE 0.9% 100 ML IV SCH ×3 (01:46→17:16)
[2018-05-21 01:58] VITALS: BP 149/87
[2018-05-21 08:07] VITALS: BP 128/72
[2018-05-21] MEDS: SODIUM CHLORIDE FLUSH 10ML SYR IVF SCH ×2 (09:00→20:36)
[2018-05-21] MEDS: FLUCONAZOLE 200 MG TABLET PO SCH (09:23)
[2018-05-21] MEDS: metFORMIN 500 MG TABLET PO SCH ×2 (09:23→17:16)
[2018-05-21] MEDS: NAPHAZOLINE/PHENIRAMINE OPHTH EACHEYE SCH ×3 (09:24→20:36)
[2018-05-21] MEDS: LINEZOLID PMX 600MG/300ML 300 ML IV SCH ×2 (10:50→22:52)
[2018-05-21 14:46] VITALS: BP 145/89
[2018-05-21] MEDS: ENOXAPARIN 40 MG/0.4 ML SQ SCH (17:16)
[2018-05-21] MEDS: ONDANSETRON 4 MG TABLET PO PRN (20:35)
[2018-05-21] MEDS: DIPHENHYDRAMINE 25 MG CAPSULE PO PRN (20:35)
[2018-05-21] MEDS: OXYcodone/APAP 5/325MG TABLET PO PRN (20:35)
[2018-05-21 20:36] VITALS: BP 148/92
[2018-05-22] MEDS: MEROPENEM 1 GM in SODIUM CHLORIDE 0.9% 100 ML IV SCH ×2 (01:09→11:15)
[2018-05-22 01:20] VITALS: BP 128/61
[2018-05-22] MEDS: NAPHAZOLINE/PHENIRAMINE OPHTH EACHEYE SCH ×4 (03:00→19:21)
[2018-05-22 07:35] VITALS: BP 133/83
[2018-05-22] MEDS: SODIUM CHLORIDE FLUSH 10ML SYR IVF SCH ×2 (09:00→19:21)
[2018-05-22] MEDS: FLUCONAZOLE 200 MG TABLET PO SCH (11:15)
[2018-05-22] MEDS: metFORMIN 500 MG TABLET PO SCH ×2 (11:15→17:48)
[2018-05-22] MEDS: LINEZOLID PMX 600MG/300ML 300 ML IV SCH (11:30)
[2018-05-22 14:15] VITALS: BP 131/87
[2018-05-22] MEDS: ENOXAPARIN 40 MG/0.4 ML SQ SCH (17:48)
[2018-05-22] MEDS: OXYcodone/APAP 5/325MG TABLET PO PRN (19:19)
[2018-05-22] MEDS: ONDANSETRON 4 MG TABLET PO PRN (19:19)
[2018-05-22] MEDS: LINEZOLID 600 MG TABLET PO SCH (19:20)
[2018-05-22] MEDS: DIPHENHYDRAMINE 25 MG CAPSULE PO PRN (19:20)
[2018-05-22] MEDS: CIPROFLOXACIN 500 MG TABLET PO SCH (19:20)
[2018-05-22 20:26] VITALS: BP 147/91
[2018-05-23 01:25] VITALS: BP 151/98
[2018-05-23] MEDS: NAPHAZOLINE/PHENIRAMINE OPHTH EACHEYE SCH ×3 (03:00→15:00)
[2018-05-23 07:25] VITALS: BP 116/81
[2018-05-23] MEDS: CIPROFLOXACIN 500 MG TABLET PO SCH (09:00)
[2018-05-23] MEDS: SODIUM CHLORIDE FLUSH 10ML SYR IVF SCH (09:00)
[2018-05-23] MEDS: FLUCONAZOLE 200 MG TABLET PO SCH (09:32)
[2018-05-23] MEDS: LINEZOLID 600 MG TABLET PO SCH (09:33)
[2018-05-23] MEDS: metFORMIN 500 MG TABLET PO SCH (09:33)
[2018-05-23] MEDS ORDERED: ACET325T14 PO (14:18)
[2018-05-23] MEDS ORDERED: METF500T PO (14:18)
[2018-05-23] MEDS ORDERED: FLUC200T PO (14:18)
[2018-05-23] MEDS ORDERED: LINE600T33 PO (14:18)
[2018-05-23] MEDS ORDERED: CIPR500T87 PO (14:18)
[2018-05-23] MEDS: ENOXAPARIN 40 MG/0.4 ML SQ SCH (16:00)
== END 2018-05-23 16:30 | disposition home or self-care (01) | DRG 580 ==
LOC: ED 17:58 → EDIP 18:03 → ED 18:58 → 3NE 21:13
PROVIDERS: ADMIT Hospitalist; ATTEND Hospitalist
PROC: 0JBP0ZX Excision of Left Lower Leg Subcutaneous Tissue and Fascia, Open Approach, Diagnostic (ICD-10-PCS; 2018-05-14)
PROC: 0JDP0ZZ Extraction of Left Lower Leg Subcutaneous Tissue and Fascia, Open Approach (ICD-10-PCS; principal; 2018-05-14 19:00)
DX: L03.116 Cellulitis of left lower limb (principal); M62.82 Rhabdomyolysis; L97.221 Non-pressure chronic ulcer of left calf limited to breakdown of skin; E11.622 Type 2 diabetes mellitus with other skin ulcer; D53.9 Nutritional anemia, unspecified; F03.90 Unspecified dementia, unspecified severity, without behavioral disturbance, psychotic disturbance, mood disturbance, and anxiety; I10 Essential (primary) hypertension; Z96.631 Presence of right artificial wrist joint; B96.89 Other specified bacterial agents as the cause of diseases classified elsewhere; Z16.24 Resistance to multiple antibiotics; Z86.718 Personal history of other venous thrombosis and embolism; Z91.19 Patient's noncompliance with other medical treatment and regimen; Z86.14 Personal history of Methicillin resistant Staphylococcus aureus infection; Z90.49 Acquired absence of other specified parts of digestive tract; Z90.89 Acquired absence of other organs
CPT/HCPCS: 36415; 80048; 80053; 82040; 82550; 82607; 82962; 83036; 83605; 83735; 84100; 84145; 84443; 85025; 85651; 86140; 87040; 87070; 87075; 87077; 87106; 87176; 87186; 87205; 88305; 93922; 96365; 96366; 99285; A9585; C1729; G0378; J0696; J0878; J1644; J1650; J2020; J2185; J2250; J2704; J2997; J3010; J3370; Q0162; J0330; J1815; J7030; J7050; Q0163

== ENCOUNTER 2018-05-27 14:35 | Inpatient (IN) | payer OTHER ==
[~2018-05-27] VITALS: Ht 165.1 cm; Wt 62.7 kg
[~2018-05-27 14:35] MED LIST: ACET325T14 PO; CIPR500T87 PO; FLUC200T PO; LINE600T33 PO; METF500T PO
[2018-05-27] MEDS ORDERED: SODIUM CHLORIDE FLUSH 10ML SYR IVF ONE ×2 (15:00→16:00)
--- NOTE | 2018-05-27 15:03 | NUR ---
THIS PT ARRIVES TO ED S/P 1 MONTH ADMISSION FOR WOUND OF THE LEFT LEG CALF. PT COMES INTO ED WITH PAIN AND PER PT SHE BELEIVES WOUND IS GETTING WORSE AT THIS TIME. PT REPORTS FOLLWOING UP WIHT WOUND CARE HOWEVER WOUND DRESSING IS DRY AND STUCK ONTO WOUND AT THIS TIME. INFORMED OF THIS. PT PLACED IN BED AND FALL TEACHING PROVIDED. AWAITING FURTHER ORDERS. PT HAS PEDAL PULSE TO LEFT LEG.
[2018-05-27 15:22] LABS: BASOPHILS # (AUTO) 0.06 x10^3/uL (0-0.1); BASOPHILS % (AUTO) 1 % (0-1); EOSINOPHILS # (AUTO) 0.06 x10^3/uL (0-0.4); EOSINOPHILS % (AUTO) 1 % (1-7); LYMPHOCYTES # (AUTO) 1.39 x10^3/uL (1-3.4); LYMPHOCYTES % (AUTO) 11 % (22-44); MD NO; MEAN CORPUSCULAR HEMOGLOBIN 36.2 pg (27.0-34.8); MEAN CORPUSCULAR HGB CONC 35.1 g/dL (32.4-35.8); MEAN CORPUSCULAR VOLUME 103.1 fL (80-100); MEAN PLATELET VOLUME 8.5 fL (7.4-10.4); MONOCYTES # (AUTO) 0.53 x10^3/uL (0.2-0.8); MONOCYTES % (AUTO) 4 % (2-9); NEUTROPHILS # (AUTO) 10.11 x10^3/uL (1.8-6.8); NEUTROPHILS % (AUTO) 83 % (42-75); PLATELET COUNT 369 x10^3/uL (130-400); RED BLOOD COUNT 3.87 x10^6/uL (3.82-5.3); RED CELL DISTRIBUTION WIDTH 12.9 % (9.6-15.2)
[2018-05-27 15:30] LABS: ALANINE AMINOTRANSFERASE 30 U/L (12-78); ALBUMIN 3.5 g/dL (3.4-5.0); ANION GAP 14 mmol/L (5-15); CALCIUM 12.6 mg/dL (8.5-10.1); CHLORIDE 90 mmol/L (98-107); CREATININE 1.21 mg/dL (0.55-1.02)
[2018-05-27 15:32] LABS: ALKALINE PHOSPHATASE 158 U/L (45-117); BILIRUBIN,TOTAL 1.5 mg/dL (0.2-1.0)
--- NOTE | 2018-05-27 15:43 | NUR ---
PT TO US AT THIS TIME UNABLE TO START IV.
[2018-05-27] MEDS ORDERED: SODIUM CHLORIDE 0.9% 1,000ML IVBOLUS ONE (16:00)
[2018-05-27] MEDS ORDERED: ENOXAPARIN 60 MG/0.6 ML SQ ONE (16:30)
[2018-05-27] MEDS ORDERED: ONDANSETRON 2MG/ML, 2ML IVPush ONE (16:30)
[2018-05-27] MEDS ORDERED: ENOXAPARIN 60 MG/0.6 ML ONE (17:07)
--- NOTE | 2018-05-27 17:12 | NUR ---
WARM BLANKET PROVIDED TO PT.
[2018-05-27] MEDS ORDERED: DOCUSATE 100 MG CAPSULE PO PRN (18:00)
[2018-05-27] MEDS ORDERED: hydrALAzine 20 MG/ML, 1ML IVPush PRN (18:00)
[2018-05-27] MEDS ORDERED: POTASSIUM CHLORIDE 20 MEQ TAB.ER.PRT PO ONE (18:00)
[2018-05-27] MEDS ORDERED: ACETAMINOPHEN 325 MG TABLET PO PRN ×2 (18:00)
[2018-05-27] MEDS ORDERED: GUAIFENESIN/COD200MG-20MG/10ML LIQUID PO PRN (18:00)
[2018-05-27] MEDS ORDERED: CYCLOBENZAPRINE 10 MG TABLET PO PRN (18:00)
[2018-05-27] MEDS ORDERED: OXYcodone/APAP 5/325MG TABLET PO ONE (19:00)
[2018-05-27] MEDS ORDERED: HEPARIN 5,000 UNITS/ML, 1ML IV ONE (19:30)
[2018-05-27] MEDS: ONDANSETRON 2MG/ML, 2ML IVPush PRN (20:24)
[2018-05-27 21:09] VITALS: BP 142/62
[2018-05-27] MEDS: OXYcodone IR 5MG TABLET PO PRN (21:09)
[2018-05-27] MEDS: LINEZOLID PMX 600MG/300ML 300 ML IV SCH (21:34)
[2018-05-27] MEDS: POTASSIUM CHLORIDE 20 MEQ in LACTATED RINGERS 1,000 ML IV SCH (21:34)
[2018-05-28] MEDS: ALUMINUM/MAG/SIMETHICONE 30 ML UDC PO PRN ×2 (00:31→19:33)
[2018-05-28] MEDS: FLUCONAZOLE 400 MG/200 ML 200 ML IV SCH ×2 (00:31→21:07)
[2018-05-28 01:00] VITALS: BP 102/56
[2018-05-28] MEDS: HEPARIN 25,000 UNITS/500ML PMX 500 ML IV PRN (01:39)
[2018-05-28] MEDS: ONDANSETRON 2MG/ML, 2ML IVPush PRN ×2 (02:19→08:30)
[2018-05-28] MEDS: OXYcodone IR 5MG TABLET PO PRN ×2 (02:26→18:19)
[2018-05-28] MEDS ORDERED: LORazepam 2 MG/ML, 1ML IVPush PRN (03:30)
[2018-05-28 05:31] LABS: CHLORIDE 96 mmol/L (98-107)
[2018-05-28 05:37] LABS: ANION GAP 11 mmol/L (5-15); CALCIUM 9.8 mg/dL (8.5-10.1); CREATININE 1.12 mg/dL (0.55-1.02)
[2018-05-28 05:56] LABS: BASOPHILS # (AUTO) 0.09 x10^3/uL (0-0.1); BASOPHILS % (AUTO) 1 % (0-1); EOSINOPHILS # (AUTO) 0.13 x10^3/uL (0-0.4); EOSINOPHILS % (AUTO) 2 % (1-7); LYMPHOCYTES # (AUTO) 1.41 x10^3/uL (1-3.4); LYMPHOCYTES % (AUTO) 16 % (22-44); MD NO; MEAN CORPUSCULAR HEMOGLOBIN 36.5 pg (27.0-34.8); MEAN CORPUSCULAR HGB CONC 34.7 g/dL (32.4-35.8); MEAN PLATELET VOLUME 8.9 fL (7.4-10.4); MONOCYTES # (AUTO) 0.51 x10^3/uL (0.2-0.8); MONOCYTES % (AUTO) 6 % (2-9); NEUTROPHILS # (AUTO) 6.57 x10^3/uL (1.8-6.8); NEUTROPHILS % (AUTO) 76 % (42-75); PLATELET COUNT 244 x10^3/uL (130-400); RED BLOOD COUNT 3.01 x10^6/uL (3.82-5.3); RED CELL DISTRIBUTION WIDTH 12.9 % (9.6-15.2)
[2018-05-28] MEDS: LINEZOLID PMX 600MG/300ML 300 ML IV SCH ×2 (05:57→18:19)
[2018-05-28] MEDS ORDERED: MAGNESIUM SULFATE PMX 2GM/50ML 50 ML IV ONE (06:00)
[2018-05-28 07:35] VITALS: BP 114/72
[2018-05-28] MEDS: POTASSIUM CHLORIDE 20 MEQ TAB.ER.PRT PO SCH ×2 (08:28→10:08)
[2018-05-28] MEDS: POTASSIUM CHLORIDE 20 MEQ in LACTATED RINGERS 1,000 ML IV SCH ×2 (10:08→21:08)
[2018-05-28 12:24] VITALS: BP 157/93
[2018-05-28] MEDS ORDERED: CIPROFLOXACIN/PMX 400MG/200ML 200 ML IV SCH (12:30)
[2018-05-28 14:20] LABS: ANION GAP 9 mmol/L (5-15); CALCIUM 9.2 mg/dL (8.5-10.1); CHLORIDE 96 mmol/L (98-107)
[2018-05-28] MEDS: HEPARIN 5,000 UNITS/ML, 1ML IV PRN ×2 (15:02→21:26)
[2018-05-28 18:58] LABS: CULTURE INDICATED? NO; MICROSCOPIC AUTO
[2018-05-28 19:48] VITALS: BP 139/78
[2018-05-29 01:24] VITALS: BP 123/76
[2018-05-29] MEDS: HEPARIN 25,000 UNITS/500ML PMX 500 ML IV PRN (05:39)
[2018-05-29] MEDS: LINEZOLID PMX 600MG/300ML 300 ML IV SCH ×2 (06:06→18:14)
[2018-05-29 07:14] VITALS: BP 128/72
[2018-05-29 07:23] LABS: ANION GAP 6 mmol/L (5-15); CALCIUM 8.6 mg/dL (8.5-10.1); CHLORIDE 101 mmol/L (98-107); CREATININE 0.79 mg/dL (0.55-1.02)
[2018-05-29] MEDS: HEPARIN 5,000 UNITS/ML, 1ML IV PRN (10:41)
[2018-05-29] MEDS: SODIUM CHLORIDE 1 GM TABLET PO SCH ×3 (10:43→21:20)
[2018-05-29] MEDS: ALUMINUM/MAG/SIMETHICONE 30 ML UDC PO PRN ×2 (10:43→16:16)
[2018-05-29] MEDS: ONDANSETRON 2MG/ML, 2ML IVPush PRN (13:05)
[2018-05-29 13:15] VITALS: BP 132/69
[2018-05-29 13:16] VITALS: BP 129/64
[2018-05-29] MEDS: CIPROFLOXACIN/PMX 400MG/200ML 200 ML IV SCH (13:36)
[2018-05-29] MEDS ORDERED: HEPARIN 5,000 UNITS/ML, 1ML IV PRN (14:30)
[2018-05-29] MEDS ORDERED: HEPARIN 25,000 UNITS/500ML PMX 500 ML IV PRN (14:30)
[2018-05-29] MEDS: INSULIN LISPRO 100 UNITS/ML, PEN SQ-INSULIN SCH ×2 (16:00→20:20)
[2018-05-29] MEDS: ENOXAPARIN 60 MG/0.6 ML SQ SCH (18:14)
[2018-05-29 19:22] LABS: CLOSTRIDIUM DIFFICILE ANTIGEN NEGATIVE; CLOSTRIDIUM DIFFICILE TOXIN NEGATIVE (Negative)
[2018-05-29 19:28] VITALS: BP 134/76
[2018-05-29] MEDS: OXYcodone IR 5MG TABLET PO PRN (21:20)
[2018-05-29] MEDS: FLUCONAZOLE 400 MG/200 ML 200 ML IV SCH (21:20)
[2018-05-30 01:22] VITALS: BP 123/71
[2018-05-30] MEDS: CIPROFLOXACIN/PMX 400MG/200ML 200 ML IV SCH (01:26)
[2018-05-30] MEDS: ENOXAPARIN 60 MG/0.6 ML SQ SCH ×2 (06:00→17:25)
[2018-05-30] MEDS: LINEZOLID PMX 600MG/300ML 300 ML IV SCH (06:00)
[2018-05-30 06:36] LABS: ANION GAP 7 mmol/L (5-15); CALCIUM 8.7 mg/dL (8.5-10.1); CHLORIDE 107 mmol/L (98-107); CREATININE 0.81 mg/dL (0.55-1.02)
[2018-05-30 06:54] VITALS: BP 126/68
[2018-05-30] MEDS: INSULIN LISPRO 100 UNITS/ML, PEN SQ-INSULIN SCH ×4 (07:00→20:00)
[2018-05-30] MEDS: ALUMINUM/MAG/SIMETHICONE 30 ML UDC PO PRN (09:27)
[2018-05-30] MEDS: LEVOFLOXACIN 500 MG TABLET PO SCH (12:14)
[2018-05-30 13:47] VITALS: BP 128/73
[2018-05-30 20:53] VITALS: BP 167/89
[2018-05-30] MEDS: OXYcodone IR 5MG TABLET PO PRN (21:53)
[2018-05-31 00:38] VITALS: BP 162/80
[2018-05-31] MEDS: ENOXAPARIN 60 MG/0.6 ML SQ SCH ×2 (05:02→18:17)
[2018-05-31 06:34] VITALS: BP 158/79
[2018-05-31] MEDS: INSULIN LISPRO 100 UNITS/ML, PEN SQ-INSULIN SCH ×4 (07:00→19:47)
[2018-05-31] MEDS: ALUMINUM/MAG/SIMETHICONE 30 ML UDC PO PRN (08:13)
[2018-05-31] MEDS ORDERED: MORPHINE SULFATE 4 MG/ML, 1ML ONE (08:28)
[2018-05-31] MEDS ORDERED: morphine SULFATE 10 MG/ML, 1ML IVPush ONE (08:30)
[2018-05-31] MEDS: LEVOFLOXACIN 500 MG TABLET PO SCH (12:42)
[2018-05-31 13:10] VITALS: BP 152/72
[2018-05-31 19:17] VITALS: BP 179/83
[2018-05-31 19:48] VITALS: BP 163/82
[2018-05-31] MEDS: OXYcodone IR 5MG TABLET PO PRN (20:36)
[2018-06-01 00:45] VITALS: BP 166/83
[2018-06-01 05:11] LABS: BASOPHILS # (AUTO) 0.05 x10^3/uL (0-0.1); BASOPHILS % (AUTO) 1 % (0-1); EOSINOPHILS # (AUTO) 0.22 x10^3/uL (0-0.4); EOSINOPHILS % (AUTO) 6 % (1-7); LYMPHOCYTES # (AUTO) 0.85 x10^3/uL (1-3.4); LYMPHOCYTES % (AUTO) 24 % (22-44); MD NO; MEAN CORPUSCULAR HEMOGLOBIN 36.2 pg (27.0-34.8); MEAN CORPUSCULAR HGB CONC 34.9 g/dL (32.4-35.8); MEAN CORPUSCULAR VOLUME 103.5 fL (80-100); MEAN PLATELET VOLUME 8.4 fL (7.4-10.4); MONOCYTES # (AUTO) 0.35 x10^3/uL (0.2-0.8); MONOCYTES % (AUTO) 10 % (2-9); NEUTROPHILS % (AUTO) 59 % (42-75); PLATELET COUNT 189 x10^3/uL (130-400); RED BLOOD COUNT 2.85 x10^6/uL (3.82-5.3); RED CELL DISTRIBUTION WIDTH 13.1 % (9.6-15.2)
[2018-06-01 05:18] LABS: ANION GAP 6 mmol/L (5-15); CHLORIDE 106 mmol/L (98-107)
[2018-06-01 05:19] LABS: CREATININE 0.68 mg/dL (0.55-1.02)
[2018-06-01] MEDS: ENOXAPARIN 60 MG/0.6 ML SQ SCH (06:20)
[2018-06-01] MEDS: INSULIN LISPRO 100 UNITS/ML, PEN SQ-INSULIN SCH ×2 (07:00→11:00)
[2018-06-01 08:02] VITALS: BP 112/65
[2018-06-01] MEDS: LEVOFLOXACIN 500 MG TABLET PO SCH (12:10)
[2018-06-01] MEDS ORDERED: APIX5TAB PO (13:05)
[2018-06-01] MEDS ORDERED: LEVO500T47 PO (13:05)
[2018-06-01 13:50] VITALS: BP 102/65
[2018-06-01] MEDS: OXYcodone IR 5MG TABLET PO PRN (16:18)
== END 2018-06-01 16:53 | disposition home or self-care (01) | DRG 299 ==
LOC: ED 17:22 → EDIP 17:38 → 3NE 19:12
PROVIDERS: ADMIT Hospitalist; ATTEND Hospitalist
DX: I82.432 Acute embolism and thrombosis of left popliteal vein (principal); N17.0 Acute kidney failure with tubular necrosis; E46 Unspecified protein-calorie malnutrition; E87.1 Hypo-osmolality and hyponatremia; L03.116 Cellulitis of left lower limb; L97.929 Non-pressure chronic ulcer of unspecified part of left lower leg with unspecified severity; B35.1 Tinea unguium; D72.828 Other elevated white blood cell count; E11.9 Type 2 diabetes mellitus without complications; Z68.23 Body mass index [BMI] 23.0-23.9, adult; E83.42 Hypomagnesemia; E83.52 Hypercalcemia; E86.0 Dehydration; E86.1 Hypovolemia; E87.6 Hypokalemia; G62.9 Polyneuropathy, unspecified; I10 Essential (primary) hypertension; Z16.11 Resistance to penicillins; Z82.49 Family history of ischemic heart disease and other diseases of the circulatory system; Z86.718 Personal history of other venous thrombosis and embolism
CPT/HCPCS: 36415; 74021; 80048; 80053; 81001; 82436; 82570; 82962; 83690; 83735; 83935; 84100; 84133; 84300; 85025; 85520; 87324; 87798; 89055; 96372; 99285; G0378; J0744; J1450; J1644; J1650; J2020; J2405; J3480; J1815; J2060; J2270; J3475; J7030; J7120